=== PATIENT | female | born 1980 | race Caucasian/White ===

== ENCOUNTER 2022-03-31 08:45 | Emergency (ER) | payer OTHER, SELFPAY ==
--- NOTE | 2022-03-31 08:47 | ED.EXTPRO ---
HPI - Extremity Problem General Chief complaint: Back Pain/Injury Stated complaint: Left Hip/Leg Pain Time Seen by Provider: 03/31/22 08:47 Source: patient Mode of arrival: ambulatory Limitations: no limitations History of Present Illness HPI Narrative: Ms. Parrish is a 41-year-old female patient presenting to the clinic today with complaints of left hip/leg pain x few months but has gradually gotten worse over the last week. She reports the pain is 10 out of 10 currently. States nothing alleviates her pain as she has tried Tylenol and Motrin. States that standing sitting and laying aggravates the pain and she is having difficulty getting in any comfortable position. States the pain is to the left posterior hip/low back and radiates down the left leg. Pain is sharp and shooting in nature with numbness and tingling as well. States at times she has difficulty lifting her leg and walking. She denies any loss of bowel or bladder. She denies any saddle anesthesia. Related Data Allergies Allergy/AdvReac Type Severity Reaction Status Date / Time morphine Allergy Unknown skin Verified 03/31/22 08:58 irritation Review of Systems Review of Systems: Pertinent positives per HPI. Patient denies any fever, chills, rash, headache, visual changes, dizziness, cough, runny nose, sore throat, shortness of breath, chest pain, palpitations, nausea, vomiting, diarrhea, constipation, abdominal pain, or any urinary issues. [facility] Family History Family History Mother Hypertension Family history of diabetes mellitus in first degree relative Other Cerebrovascular accident Family history of kidney disease Social History Social History Smoking status: Never smoker Alcohol intake: never Comments At the time of my signature, I reviewed and agree with the nursing past medical, surgical, social, and family history. There is no relevant family history pertinent to the patient complaint. Exam Narrative: General: Well-developed, morbidly obese, in no apparent distress Head: Normocephalic, atraumatic. Cardio: Regular rate and rhythm, s1 and s2 normal, no murmur appreciated. Resp: Clear to auscultation bilaterally, no rhonchi, rales, wheezing or rubs. Musculoskeletal: No deformity, exquisitely tender to palpation to the posterior hip over the SI joint and left lower back with pain radiating on the left leg, grossly normal range of motion, muscle strength strong and equal, patellar reflexes 2+, peripheral pulse strong, negative foot drop, no edema, no cyanosis, waddling gait and station Course Course Emergency Course: Portions of this record may have been created with voice recognition software. Level of Care: Express Care Visit Vital Signs Vital signs: Vital signs reviewed MDM - Extremity (Nontraumatic) MDM Narrative Medical decision making narrative: At the time of visit patient is in some pain and is unable to sit on her left hip. She denies taking anything for pain this morning so Toradol 60 mg IM given in the clinic. She rates her pain currently a 10 out of 10. No sign of neurological concern, we will go ahead and give her to tapered prescription of prednisone, sciatica exercises were discussed with the patient and she voiced understanding, other supportive measures were also discussed for sciatica and she voiced understanding of discharge instructions and agrees to the treatment plan. Differential Diagnosis Differential diagnosis: Likely other (Lumbar radiculopathy, sciatica, herniated disc, pinched nerve, SI joint dysfunction) Discharge Plan Discharge Clinical Impression: Lumbar radiculopathy Sciatica Qualifiers: Laterality: left Qualified Code(s): M54.32 - Sciatica, left side Patient Disposition: Home, Self-Care Condition: Stable Instructions: Antibiotic Form, Sciatica (ED), Lumbar Radi
[2022-03-31 08:52] VITALS: BP 158/97; PULSE 61; RESP 16; TEMP 36.7; O2SAT 100
[2022-03-31] MEDS: KETOROLAC (*BKC) 60 MG/2 ML VIAL IM (09:06)
== END 2022-03-31 09:25 | disposition home or self-care (01) ==
PROVIDERS: Emergency Provider Nurse Practitioner Family; PCP Physician Assistant
DX: M54.16 Radiculopathy, lumbar region (principal); M54.32 Sciatica, left side; E11.9 Type 2 diabetes mellitus without complications
CPT/HCPCS: 96372; 99203; 99213; G0463; J1885

== ENCOUNTER 2022-08-23 12:49 | Emergency (ER) | payer OTHER, SELFPAY ==
[2022-08-23 12:56] VITALS: BP 132/90; PULSE 97; RESP 20; TEMP 36.4; O2SAT 100
--- NOTE | 2022-08-23 13:56 | ED.FEMALEGU ---
HPI - Female Genitourinary General Chief complaint: Urogenital-Female Stated complaint: Urinary Problem Time Seen by Provider: 08/23/22 13:56 Source: patient and RN notes reviewed Mode of arrival: ambulatory Limitations: no limitations History of Present Illness HPI Narrative: 42-year-old female with uncontrolled diabetes presented for complaints headache for over 1 week. She states she has taken Tylenol and ibuprofen without relief. She states the last time she had severe headaches, her blood sugar was 700. She endorses she does not have a PCP, she has not been checking blood sugars or managing her diabetes for several years due to Lack of insurance. Denies vision changes, photophobia, dizziness, nausea, vomiting, numbness, tingling or weakness. Patient also endorses vaginal itching and burning with urination. She states skin feels raw and swollen. She denies urinary frequency, urgency, hematuria, fevers or chills. Endorses discharge looks like yeast. Has not taken anything for these symptoms. Related Data Allergies Allergy/AdvReac Type Severity Reaction Status Date / Time morphine Allergy Unknown skin Verified 03/31/22 08:58 irritation Review of Systems Review of Systems: CONSTITUTIONAL: Denies body aches, fever, chills, or sweats. CARDIOVASCULAR: Denies chest pain, palpitations, or edema. RESPIRATORY: Denies cough or dyspnea. GASTROINTESTINAL: Denies abdominal pain, nausea, vomiting, or diarrhea. GENITOURINARY: Reports dysuria, itching denies frequency, urgency, hematuria, flank pain SKIN: Denies rash, or wounds. MUSCULOSKELETAL: Denies back pain or myalgia. [facility] Family History Family History Mother Hypertension Family history of diabetes mellitus in first degree relative Other Cerebrovascular accident Family history of kidney disease Social History Social History Smoking status: Never smoker Alcohol intake: never Comments At time of signature, I have reviewed and agree with nursing past medical, surgical, social and family history unless otherwise noted. Please see nursing chart for further information. There is no relevant family history pertinent to the presenting complaint Exam Narrative: GENERAL: Well-appearing ENT: Mucous membranes pink and moist. NECK: Normal AROM. Supple. Left anterior cervical lymphadenopathy CHEST: Clear to auscultation. HEART: Regular rate and rhythm. ABDOMEN: Soft, nontender, nondistended, normal active bowel sounds. No CVA tenderness MUSCULOSKELETAL: No bony tenderness. SKIN: Warm, dry, no rash. NEURO: No focal deficits. PERRLA EOMI. sensation in face intact. no facial droop. Alert and oriented x3. Gait steady. PSYCH: Normal affect. Course Course Emergency Course: Patient is aware of diagnosis, understands and agrees to treatment plan. Anticipatory guidance given. Patient agrees to follow-up as directed and is aware of reasons to seek care at the emergency department. Portions of this record may have been created with voice recognition software Level of Care: Express Care Visit Vital Signs Vital signs: Vital Signs Temperature 97.6 F 08/23/22 12:56 Pulse Rate 97 08/23/22 12:56 Respiratory Rate 20 08/23/22 12:56 Blood Pressure 132/90 08/23/22 12:56 Pulse Oximetry 100 08/23/22 12:56 Oxygen Delivery Room Air 08/23/22 12:56 Temperature 97.6 F 08/23/22 12:56 Pulse Rate 97 08/23/22 12:56 Respiratory Rate 20 08/23/22 12:56 Blood Pressure 132/90 08/23/22 12:56 Pulse Oximetry 100 08/23/22 12:56 Oxygen Delivery Room Air 08/23/22 12:56 Reviewed MDM - Female Genitourinary MDM Narrative Medical decision making narrative: Patient's POC blood sugar of 397. Results reviewed with patient. Urine result also reviewed with patient positive for ketones and glucose. She is advised at length o
[2022-08-23 14:18] LABS: Glucose Point of Care 397 mg/dl (65-105)
== END 2022-08-23 14:31 | disposition home or self-care (01) ==
PROVIDERS: Emergency Provider Nurse Practitioner Family; PCP Physician Assistant
DX: E11.65 Type 2 diabetes mellitus with hyperglycemia (principal); R10.2 Pelvic and perineal pain; R51.9 Headache, unspecified
CPT/HCPCS: 81003; 82948; 99213; G0463

== ENCOUNTER 2022-08-31 12:06 | Emergency (ER) | payer OTHER, SELFPAY ==
[2022-08-31 12:13] VITALS: BP 153/85; PULSE 102; RESP 18; TEMP 36.4; O2SAT 100
--- NOTE | 2022-08-31 14:10 | ED.URI ---
HPI - URI/Sore Throat General Chief Complaint: Upper Respiratory Infection Stated Complaint: Ear Pain Time Seen by Provider: 08/31/22 14:10 Source: patient Mode of arrival: ambulatory Limitations: no limitations History of Present Illness HPI Narrative: 42-year-old female presented for complaint of left ear pain for 2 days. She endorses the pain is worse when she opens her mouth. She also states she has been waking with the jaw locked shut for 2 days, it slowly releases throughout the day. She has been eating soft foods and taking Tylenol and ibuprofen without relief. Related Data Allergies Allergy/AdvReac Type Severity Reaction Status Date / Time morphine Allergy Unknown skin Verified 08/31/22 13:27 irritation codeine Allergy Itching Verified 08/31/22 13:27 Review of Systems Review of Systems: CONSTITUTIONAL: Denies malaise, chills, or fever. EYES: Denies visual changes, redness, or discharge. ENT: Denies rhinorrhea, congestion, sinus pain, and sore throat. Reports ear pain CARDIOVASCULAR: Denies chest pain, palpitations, or edema. RESPIRATORY: Denies cough or dyspnea. GASTROINTESTINAL: Denies abdominal pain, nausea, vomiting, diarrhea SKIN: Denies rash or itching. MUSCULOSKELETAL: Denies myalgia. NEUROLOGIC: Denies headache. All systems reviewed & are unremarkable except as noted in HPI and below PMFSH Family History Family History Mother Hypertension Family history of diabetes mellitus in first degree relative Other Cerebrovascular accident Family history of kidney disease Social History Social History Smoking status: Never smoker Alcohol intake: never Comments At time of signature, agree with nursing past medical, surgical, social and family history. There is no relevant family history pertinent to the presenting complaint Exam Narrative: GENERAL: Well-appearing, well-nourished, and in no acute distress. HEAD: Normocephalic EYES: PERRLA, conjunctivae clear ENT: Nares clear. Mucous membranes moist. TM pearly proctor with dull light reflex bilaterally; no tragal tenderness. Oropharynx not erythematous without lesions. no drooling, no hoarseness, no trismus, uvula midline. Left TMJ tender with light palpation. NECK: Supple. No lymphadenopathy CHEST: Clear to auscultation, breath sounds equal. HEART: Regular rate and rhythm. No murmur heard. SKIN: Warm, dry, no rash. NEURO: Alert and oriented x3. PSYCH: Normal mood and affect Course Course Emergency Course: Patient is aware of diagnosis, understands and agrees to treatment plan. Anticipatory guidance given. Patient agrees to follow-up as directed and is aware of reasons to seek care at the emergency department. Portions of this record may have been created with voice recognition software Level of Care: Express Care Visit Vital Signs Vital signs: Vital Signs Temperature 97.6 F 08/31/22 12:13 Pulse Rate 102 H 08/31/22 12:13 Respiratory Rate 18 08/31/22 12:13 Blood Pressure 153/85 H 08/31/22 12:13 Pulse Oximetry 100 08/31/22 12:13 Oxygen Delivery Room Air 08/31/22 12:13 Temperature 97.6 F 08/31/22 12:13 Pulse Rate 102 H 08/31/22 12:13 Respiratory Rate 18 08/31/22 12:13 Blood Pressure 153/85 H 08/31/22 12:13 Pulse Oximetry 100 08/31/22 12:13 Oxygen Delivery Room Air 08/31/22 12:13 Reviewed MDM - URI/Sore Throat MDM Narrative Medical decision making narrative: Patient is aware no apparent ear infection. We discussed TMJ as a possible etiology. She does not have a dentist. Advised supportive measures and signs/symptoms to go to the ER. Pt is appropriate for outpt treatment and f/u. Differential Diagnosis Differential diagnosis: Likely upper respiratory infection, otitis media, viral infection, influenza and other (TMJ) Discharge Plan Discharge Clinical Impression: Otalgia of l
== END 2022-08-31 14:25 | disposition home or self-care (01) ==
PROVIDERS: Emergency Provider Nurse Practitioner Family; PCP Physician Assistant
DX: H92.02 Otalgia, left ear (principal); K21.9 Gastro-esophageal reflux disease without esophagitis; E11.9 Type 2 diabetes mellitus without complications
CPT/HCPCS: 99213; G0463